=== PATIENT | male | born 1960 | race Caucasian/White ===

== ENCOUNTER 2016-08-28 08:40 | Emergency (ER) | payer OTHER ==
--- NOTE | 2016-08-28 10:19 | DIAGNOSTIC IMAGING REPORT ---
PROCEDURE: XR RIBS UNILAT W/PA CHEST-LT INDICATION: Fall down stairs 1 week ago, left chest pain. TECHNIQUE: Two views of the left ribs with single PA view chest. COMPARISON: None. FINDINGS: LEFT RIBS: Mildly displaced left eighth rib fracture. No other displaced fractures visible. No suspicious rib lesions. CHEST: Normal cardiomediastinal contour. Mild aortic arch calcific atherosclerosis. Mild asymmetric right hemidiaphragm elevation with subsegmental atelectatic change. Clear lungs without pleural effusion, pneumothorax, or contusion. The other visible osseous structures are intact. IMPRESSION: 1. Mildly displaced left eighth rib fracture. 2. No evidence of underlying lung trauma. 3. Mild aortic arch atherosclerosis.
--- NOTE | 2016-08-28 10:26 | DIAGNOSTIC IMAGING REPORT ---
PROCEDURE: XR KNEE 4 VIEWS - LEFT INDICATION: TRAUMA/INJURY TECHNIQUE: Four views. COMPARISON: None. FINDINGS: Osseous structures and joint spaces are normal. IMPRESSION: 1. Normal left knee.
--- NOTE | 2016-08-28 10:49 | ED NURSING NOTES ---
Clinical Report - Nurses [place] [address] [place] [address] 08/28/2016 8:42 [id number] Triage time 08:53. Acuity: LEVEL 4. Chief Complaint: FALL DOWN 4 STAIRS while walking, onto a tile surface and landed on their head, back and knees; tripped (and left ribs). Alert. SEPSIS SCREEN: Sepsis Screen. Negative (no infection suspected/documented). TIFFANY COMA SCORE: [place] Coma Scale: 15- eyes open spontaneously (4); best verbal response- oriented x 4 (5); best motor response- obeys commands (6). --09:02 Rosa Maria Boswell R.N. 08:52 08/28/16. BP: 110/71. HR: 98. RR: 18. O2 saturation: 95% on room air. Temp: 98.3 F. --09:02 Rosa Maria Boswell R.N. Weight: 82.5 kg stated. Height/Length: 72 inches Per Patient. BMI: 24.7. --08:54 Rosa Maria Boswell R.N. Medications Furosemide Oral 20 mg, daily. --08:56 Rosa Maria Boswell R.N. Spironolactone Oral 50 mg, daily. --08:57 Rosa Maria Boswell R.N. Allergies Codeine. Penicillins. --08:56 Rosa Maria Boswell R.N. History Arrived by private vehicle. Historian: patient. Accompanied by family. Primary physician (none, [facility]). Location of injuries: left upper back and left knee. This occurred (7 days ago). [facility] at [facility] PAST MEDICAL HX: Immunizations: up-to-date. SOCIAL HX: Never smoker. Alcohol use. Patient is a recovering alcoholic. No drug use. FUNCTIONAL ASSESSMENT: Functional assessment: no impairments noted. LEARNING NEEDS ASSESSMENT: The learning needs assessment revealed no barriers. --09:02 Rosa Maria Boswell R.N. PROBLEMS: Ascites. --09:02 Rosa Maria Boswell R.N. Umbilical Hernia. --09:02 Rosa Maria Boswell R.N. ADDITIONAL SURGERIES: Hernia Repair. --09: Rosa Maria Boswell R.N. Tonsillectomy. --09:02 Rosa Maria Boswell R.N. Interventions ID band on patient. To room. --09: Rosa Maria Boswell R.N. PHYSICAL ASSESSMENT 09:08/28/16. Patient gowned. GENERAL / NEURO / PSYCH: Alert. Oriented X 4. --09:03 Rosa Maria Boswell R.N. NURSING PROGRESS NOTES 09:08/28/16. Patient identifiers checked. Call light placed in reach. Bed placed in lowest position. Patient ready for evaluation- chart flagged. --09:03 Rosa Maria Boswell R.N. DISPOSITION / DISCHARGE Condition at departure: unchanged. No learning barriers present. Discharge instructions provided and reviewed with the patient and family. Reviewed medication(s) information. Prescription(s) given to the patient. Reviewed referrals ([facility] located next door). Verbalized understanding. Written instructions provided. The patient was discharged home and accompanied by family. He left the Emergency Department ambulatory and via private vehicle. Family member driving. --11:07 Rosa Maria Boswell R.N. 11:03 08/28/16. BP: 122/81. HR: 101. RR: 18. O2 saturation: 96%. Temp: 98 F. --11:07 Rosa Maria Boswell R.N. 11:03 08/28/16. Pain level now: 11/26. --11:51 Rosa Maria Boswell R.N. Locked/Released at 08/28/2016 11:51 by Rosa Maria Boswell R.N.
--- NOTE | 2016-08-28 10:49 | ED ORDER SUMMARY ---
..... Patient: YOANDY MALDONADO OrderSheet [facility] VisitID: [id number] [address] [place] [address] 56y, M Registration Date/Time: 08/28/2016 ORDER SHEET Weight: 82.5 kg (stated) Allergies: Codeine, Penicillins GENERAL ORDERS: Knee 4V Left Urgent (09:08/28/2016 Kaylen Nails) (Ack 9:31 TBergley) (9:52 TBergley) Ribs Unilat w PA Chest Left Urgent (09:08/28/2016 Kaylen Nails) (Ack 9:31 TBergley) (9:52 TBergley) MEDICATION ORDERS: IV FLUIDS: ORDER SHEET NOTES: [Electronically signed by Raleigh Webber Dr. (10:52 08/28/2016)] [Electronically signed by Rosa Maria Boswell R.N. (11:51 08/28/2016)] [Electronically locked/signed by Rosa Maria Boswell R.N. (11:51 08/28/2016)]
--- NOTE | 2016-08-28 10:49 | ED NURSING NOTES ---
Clinical Report - Nurses [address] [place] [place] [address] 08/28/2016 8:42 [id number] Triage time 08:53. Acuity: LEVEL 4. Chief Complaint: FALL DOWN 4 STAIRS while walking, onto a tile surface and landed on their head, back and knees; tripped (and left ribs). Alert. SEPSIS SCREEN: Sepsis Screen. Negative (no infection suspected/documented). TIFFANY COMA SCORE: [place] Coma Scale: 15- eyes open spontaneously (4); best verbal response- oriented x 4 (5); best motor response- obeys commands (6). --09:02 Rosa Maria Boswell R.N. 08:52 08/28/16. BP: 110/71. HR: 98. RR: 18. O2 saturation: 95% on room air. Temp: 98.3 F. --09:02 Rosa Maria Boswell R.N. Weight: 82.5 kg stated. Height/Length: 72 inches Per Patient. BMI: 24.7. --08:54 Rosa Maria Boswell R.N. Medications Furosemide Oral 20 mg, daily. --08:56 Rosa Maria Boswell R.N. Spironolactone Oral 50 mg, daily. --08:57 Rosa Maria Boswell R.N. Allergies Codeine. Penicillins. --08:56 Rosa Maria Boswell R.N. History Arrived by private vehicle. Historian: patient. Accompanied by family. Primary physician (none, [facility]). Location of injuries: left upper back and left knee. This occurred (7 days ago). Occurred at [facility]. PAST MEDICAL HX: Immunizations: up-to-date. SOCIAL HX: Never smoker. Alcohol use. Patient is a recovering alcoholic. No drug use. FUNCTIONAL ASSESSMENT: Functional assessment: no impairments noted. LEARNING NEEDS ASSESSMENT: The learning needs assessment revealed no barriers. --09:02 Rosa Maria Boswell R.N. PROBLEMS: Ascites. --09:02 Rosa Maria Boswell R.N. Umbilical Hernia. --09:02 Rosa Maria Boswell R.N. ADDITIONAL SURGERIES: Hernia Repair. --09: Rosa Maria Boswell R.N. Tonsillectomy. --09:02 Rosa Maria Boswell R.N. Interventions ID band on patient. To room. --09: Rosa Maria Boswell R.N. PHYSICAL ASSESSMENT 09:08/28/16. Patient gowned. GENERAL / NEURO / PSYCH: Alert. Oriented X 4. --09:03 Rosa Maria Boswell R.N. NURSING PROGRESS NOTES 09:08/28/16. Patient identifiers checked. Call light placed in reach. Bed placed in lowest position. Patient ready for evaluation- chart flagged. --09:03 Rosa Maria Boswell R.N. DISPOSITION / DISCHARGE Condition at departure: unchanged. No learning barriers present. Discharge instructions provided and reviewed with the patient and family. Reviewed medication(s) information. Prescription(s) given to the patient. Reviewed referrals ([facility] located next door). Verbalized understanding. Written instructions provided. The patient was discharged home and accompanied by family. He left the Emergency Department ambulatory and via private vehicle. Family member driving. --11:07 Rosa Maria Boswell R.N. 11:03 08/28/16. BP: 122/81. HR: 101. RR: 18. O2 saturation: 96%. Temp: 98 F. --11:07 Rosa Maria Boswell R.N. 11:03 08/28/16. Pain level now: 11/26. --11:51 Rosa Maria Boswell R.N. Locked/Released at 08/28/2016 11:51 by Rosa Maria Boswell R.N.
--- NOTE | 2016-08-28 10:49 | ED CLINICAL REPORT ---
Clinical Report - Physicians/Mid Levels [facility] [address] [place] [address] 08/28/2016 8:42 Patient: YOANDY MALDONADO Time Seen: 09:03; initial patient contact. Arrived- By private vehicle. Historian- patient. HISTORY OF PRESENT ILLNESS Location of injuries- chest and left knee. Chief Complaint: FALL and INJURY TO CHEST and LEFT LOWER EXTREMITY (KNEE). Fell down 5 stairs while walking and landed on a carpeted surface; tripped. The patient complains of moderate pain. No blow to the head, neck pain or loss of consciousness. Not dazed. REVIEW OF SYSTEMS The patient complains of pain on weight bearing. No numbness, difficulty breathing or abdominal pain. He has had chest pain. All systems otherwise negative, except as recorded above. PAST HISTORY Ascites. Umbilical Hernia. SURGERIES: Hernia Repair. Tonsillectomy. Medications: Spironolactone Oral 50 mg, daily. Furosemide Oral 20 mg, daily. Allergies: Codeine. Penicillins. SOCIAL HISTORY Never smoker. Alcohol use. Patient is a recovering alcoholic. ADDITIONAL NOTES The nursing notes have been reviewed with agreement regarding the chief complaint, PMH and patient medications and allergies. PHYSICAL EXAM Vital Signs: 08/28/2016 08:52 BP: 110/71. HR: 98. RR: 18. O2 saturation: 95%. Temp: 98.3 F. Have been reviewed as normal. Appearance: Alert. Oriented X3. No acute distress. Head: Head non-tender. No swelling of head. Eyes: Pupils equal, round and reactive to light. EOM intact. ENT: No dental injury. Pharynx normal. Neck: Painless ROM. Non-tender. CVS: Heart sounds normal. Pulses normal. Respiratory: No respiratory distress. Chest wall injury: moderate tenderness located in the left and lateral chest. No splinting present. No paradoxical movement. Breath sounds normal. Abdomen: No visible injury. Soft and nontender. Bowel sounds normal. No organomegaly. No mass. Back: No tenderness. ROM normal. Skin: Skin intact. Skin warm and dry. Normal skin color. Extremities: Left knee: mild tenderness and swelling located in the patella. Neurovascular intact distally. No ligamentous laxity present. No joint effusion. No erythema, abrasion, ecchymosis or deformity. No limitation in ROM. Neuro: Oriented X 3. No motor deficit. LABS, X-RAYS, AND EKG Sternum / Ribs X-rays: On the left, 8th rib fracture(s) present laterally. Normal lung markings present. Soft tissues normal. No pneumothorax. Views: left ribs. AP of chest. Technique: good. The X-rays were independently viewed by me and interpreted contemporaneously by me. Prior films were not available for comparison. Interpretation time: 10:20. Lt Knee X-ray: No fracture. Normal alignment. No bony lesion, air in the soft tissue or foreign body. Soft tissues normal. Joint spaces normal. Views: AP, lateral and oblique. Technique: good. The X-rays were independently viewed by me and interpreted contemporaneously by me. Prior films were not available for comparison. Interpretation time: 10:20. PROGRESS AND PROCEDURES Disposition: Discharged home in good condition. Condition: good. CLINICAL IMPRESSION Single left rib fracture. Single contusion to the left knee. INSTRUCTIONS Your Current Medications: CONTINUE TAKING THE FOLLOWING MEDICATIONS: Furosemide Oral : 20 mg daily. Spironolactone Oral : 50 mg daily. Prescription Medications: Hydrocodone/APAP 5mg / 325mg: take 1 orally every 6 hours as needed for pain. Dispense thirty (30). No refill. Diclofenac 50 mg tablets: take 1 tablet orally every 8 hours as needed for pain or stiffness. Dispense thirty (30). No refill. Follow-up: Screening today revealed the patient's blood pressure to be in the normal range. Follow-up with: [facility], , , [address], , [place], [id number] Follow up in about four days. Call for an appointment. (Electronically signed by Raleigh Webber Dr. 08/28/2016 10:52)
--- NOTE | 2016-08-28 10:49 | ED CLINICAL REPORT ---
Clinical Report - Physicians/Mid Levels [facility] [address] [place] [address] 08/28/2016 8:42 Patient: YOANDY MALDONADO Time Seen: 09:03; initial patient contact. Arrived- By private vehicle. Historian- patient. HISTORY OF PRESENT ILLNESS Location of injuries- chest and left knee. Chief Complaint: FALL and INJURY TO CHEST and LEFT LOWER EXTREMITY (KNEE). Fell down 5 stairs while walking and landed on a carpeted surface; tripped. The patient complains of moderate pain. No blow to the head, neck pain or loss of consciousness. Not dazed. REVIEW OF SYSTEMS The patient complains of pain on weight bearing. No numbness, difficulty breathing or abdominal pain. He has had chest pain. All systems otherwise negative, except as recorded above. PAST HISTORY Ascites. Umbilical Hernia. SURGERIES: Hernia Repair. Tonsillectomy. Medications: Spironolactone Oral 50 mg, daily. Furosemide Oral 20 mg, daily. Allergies: Codeine. Penicillins. SOCIAL HISTORY Never smoker. Alcohol use. Patient is a recovering alcoholic. ADDITIONAL NOTES The nursing notes have been reviewed with agreement regarding the chief complaint, PMH and patient medications and allergies. PHYSICAL EXAM Vital Signs: 08/28/2016 08:52 BP: 110/71. HR: 98. RR: 18. O2 saturation: 95%. Temp: 98.3 F. Have been reviewed as normal. Appearance: Alert. Oriented X3. No acute distress. Head: Head non-tender. No swelling of head. Eyes: Pupils equal, round and reactive to light. EOM intact. ENT: No dental injury. Pharynx normal. Neck: Painless ROM. Non-tender. CVS: Heart sounds normal. Pulses normal. Respiratory: No respiratory distress. Chest wall injury: moderate tenderness located in the left and lateral chest. No splinting present. No paradoxical movement. Breath sounds normal. Abdomen: No visible injury. Soft and nontender. Bowel sounds normal. No organomegaly. No mass. Back: No tenderness. ROM normal. Skin: Skin intact. Skin warm and dry. Normal skin color. Extremities: Left knee: mild tenderness and swelling located in the patella. Neurovascular intact distally. No ligamentous laxity present. No joint effusion. No erythema, abrasion, ecchymosis or deformity. No limitation in ROM. Neuro: Oriented X 3. No motor deficit. LABS, X-RAYS, AND EKG Sternum / Ribs X-rays: On the left, 8th rib fracture(s) present laterally. Normal lung markings present. Soft tissues normal. No pneumothorax. Views: left ribs. AP of chest. Technique: good. The X-rays were independently viewed by me and interpreted contemporaneously by me. Prior films were not available for comparison. Interpretation time: 10:20. Lt Knee X-ray: No fracture. Normal alignment. No bony lesion, air in the soft tissue or foreign body. Soft tissues normal. Joint spaces normal. Views: AP, lateral and oblique. Technique: good. The X-rays were independently viewed by me and interpreted contemporaneously by me. Prior films were not available for comparison. Interpretation time: 10:20. PROGRESS AND PROCEDURES Disposition: Discharged home in good condition. Condition: good. CLINICAL IMPRESSION Single left rib fracture. Single contusion to the left knee. INSTRUCTIONS Your Current Medications: CONTINUE TAKING THE FOLLOWING MEDICATIONS: Furosemide Oral : 20 mg daily. Spironolactone Oral : 50 mg daily. Prescription Medications: Hydrocodone/APAP 5mg / 325mg: take 1 orally every 6 hours as needed for pain. Dispense thirty (30). No refill. Diclofenac 50 mg tablets: take 1 tablet orally every 8 hours as needed for pain or stiffness. Dispense thirty (30). No refill. Follow-up: Screening today revealed the patient's blood pressure to be in the normal range. Follow-up with: [facility], , , [address], , [place], [id number] Follow up in about four days. Call for an appointment. (Electronically signed by Raleigh Webber Dr. 08/28/2016 10:52)
--- NOTE | 2016-08-28 10:49 | ED ORDER SUMMARY ---
..... Patient: YOANDY MALDONADO OrderSheet [facility] VisitID: [id number] [address] [place] [address] 56y, M Registration Date/Time: 08/28/2016 ORDER SHEET Weight: 82.5 kg (stated) Allergies: Codeine, Penicillins GENERAL ORDERS: Knee 4V Left Urgent (09:08/28/2016 Kaylen Nails) (Ack 9:31 TBergley) (9:52 TBergley) Ribs Unilat w PA Chest Left Urgent (09:08/28/2016 Kaylen Nails) (Ack 9:31 TBergley) (9:52 TBergley) MEDICATION ORDERS: IV FLUIDS: ORDER SHEET NOTES: [Electronically signed by Raleigh Webber Dr. (10:52 08/28/2016)] [Electronically signed by Rosa Maria Boswell R.N. (11:51 08/28/2016)] [Electronically locked/signed by Rosa Maria Boswell R.N. (11:51 08/28/2016)]
--- NOTE | 2016-08-28 11:52 | ED MAR SUMMARY ---
..... Medication Administration Record [facility] [address] [place], [place] [id number] Patient: YOANDY MALDONADO Visit ID: [id number] 56y, M Weight: 82.5 kg Height/Length: 72 in BMI: 24.7 ALLERGIES: Penicillins, Codeine
--- NOTE | 2016-08-28 11:52 | ED MED RECONCILIATION SUMMARY ---
Patient: YOANDY MALDONADO Medication Reconciliation Report VisitID: [id number] [address] [place] [address] 56y, M Registration Date/Time: 08/28/2016 Weight: 82.5 kg Height/Length: 72 in. BMI: 24.7 ALLERGIES: Codeine, Penicillins The patient's Home Medications are listed below: CONTINUE TAKING THE FOLLOWING MEDICATIONS: Furosemide Oral 20 mg, daily Spironolactone Oral 50 mg, daily The source(s) of the original Home Medication information: Not obtained. The following Medications were given to the patient in the Emergency Department: None. The following Medications were prescribed to the patient: Hydrocodone/APAP 5mg / 325mg: take 1 orally every 6 hours as needed for pain. Dispense thirty (30). No refill. -- Raleigh Webber Dr. Diclofenac 50 mg tablets: take 1 tablet orally every 8 hours as needed for pain or stiffness. Dispense thirty (30). No refill. -- Raleigh Webber Dr.
--- NOTE | 2016-08-28 11:52 | ED DISCHARGE INSTRUCTIONS ---
Patient: YOANDY MALDONADO General Instructions [facility] VisitID: [id number] [address], [place] [address] 56y, M Registration Date/Time: 08/28/2016 Single left rib fracture. Single contusion to the left knee. INSTRUCTIONS Your Current Medications: CONTINUE TAKING THE FOLLOWING MEDICATIONS: Furosemide Oral : 20 mg daily. Spironolactone Oral : 50 mg daily. Prescription Medications: Hydrocodone/APAP 5mg / 325mg: take 1 orally every 6 hours as needed for pain. Dispense thirty (30). No refill. Diclofenac 50 mg tablets: take 1 tablet orally every 8 hours as needed for pain or stiffness. Dispense thirty (30). No refill. Follow-up: Screening today revealed the patient's blood pressure to be in the normal range. Follow-up with: [facility], , , [address], , [place], [address] Follow up in about four days. Call for an appointment. ADDITIONAL INFORMATION Contusion,Soft Tissue You have a CONTUSION, which is a bruise with swelling and some bleeding under the skin. There are no broken bones. This injury takes a few days to a few weeks to heal. Home Care: 1) Keep the injured part elevated to reduce pain and swelling. This is especially important during the first 48 hours. 2) Make an ice pack (ice cubes in a plastic bag, wrapped in a towel) and apply for 20 minutes every 1-2 hours the first day. Continue this 3-4 times a day until the pain and swelling goes away. 3) You may use acetaminophen (Tylenol) or ibuprofen (Motrin, Advil) to control pain, unless another pain medicine was prescribed. [ NOTE : If you have chronic liver or kidney disease or ever had a stomach ulcer or GI bleeding, talk with your doctor before using these medicines.] Follow Up with your doctor or this facility if you are not improving within the next THREE days. [NOTE: If X-rays were taken, they will be reviewed by a radiologist. You will be notified of any new findings that may affect your care.] Get Prompt Medical Attention if any of the following occur: -- Pain or swelling increases -- Injured arm or leg becomes cold, blue, numb or tingly -- Redness, warmth or drainage from the skin Rib Fracture You have a fracture (break) of one or more ribs. Rib fractures do not require a cast like other bones. They will heal by themselves in about 4-6 weeks. The first 3-4 weeks will be the most painful because deep breathing, coughing or changing position from sitting to lying down, may cause the broken ends to move slightly. Home Care: Rest. You should not be doing any heavy lifting or strenuous exertion until the pain goes away. Because it hurts to breathe when you have a broken rib, there is risk of getting pneumonia from poor airflow through your lungs. To prevent this: Take four very deep breaths at least four times a day (exhale through pursed lips as if you are blowing up a balloon). If an "incentive spirometer" (breathing exercise device) was given to you, use it at least four times a day, or as directed. Apply an ice pack (ice cubes in a plastic bag, wrapped in a towel) over the injured area for 20 minutes every 1-2 hours the first day. Continue with ice packs 3-4 times a day for the next two days, then as needed for the relief of pain and swelling. You may use acetaminophen (Tylenol) or ibuprofen (Motrin, Advil) to control pain, unless another pain medicine was prescribed. [NOTE: If you have chronic liver or kidney disease or ever had a stomach ulcer or GI bleeding, talk with your doctor before using these medicines.] If your pain is not controlled by the treatment given, contact your doctor. Sometimes a stronger pain medicine may be needed. A nerve block (numbing the nerve between the ribs) can be performed in case of severe pain. Follow Up with your doctor during the next week, or as advised. Rarely, a broken rib will cause complications within the first few days that may not be evident during your initial exam (such as, collapsed lung, bleeding around the lung or into the abdomen, or pneumonia). Therefore, watch for the signs below. [NOTE: If x-rays were taken, they will be reviewed by a radiologist. You will be notified of any new findings that may affect your care.] Get Prompt Medical Attention if any of the following occur: Shortness of breath Increasing chest pain with breathing Dizziness, weakness or fainting New or worsening abdominal pain Fever of 100.4F (38C) or higher, or as directed by your healthcare provider Congested cough Hydrocodone Bitartrate, Acetaminophen Oral tablet What is this medicine? ACETAMINOPHEN; HYDROCODONE (a set a ANA harvey fen; yvan droe KOE done) is a pain reliever. It is used to treat mild to moderate pain. How should I use this medicine? Take this medicine by mouth. Swallow it with a full glass of water. Follow the directions on the prescription label. If the medicine upsets your stomach, take the medicine with food or milk. Do not take more than you are told to take. Talk to your automotive services manager regarding the use of this medicine in children. This medicine is not approved for use in children. What side effects may I notice from receiving this medicine? Side effects that you should report to your doctor or health acute care certified nursing assistant as soon as possible: allergic reactions like skin rash, itching or hives, swelling of the face, lips, or tongue breathing problems confusion feeling faint or lightheaded, falls stomach pain yellowing of the eyes or skin Side effects that usually do not require medical attention (report to your doctor or health acute care certified nursing assistant if they continue or are bothersome): nausea, vomiting stomach upset What may interact with this medicine? alcohol antihistamines isoniazid medicines for depression, anxiety, or psychotic disturbances medicines for sleep muscle relaxants naltrexone narcotic medicines (opiates) for pain phenobarbital ritonavir tramadol What if I miss a dose? If you miss a dose, take it as soon as you can. If it is almost time for your next dose, take only that dose. Do not take double or extra doses. Where should I keep my medicine? Keep out of the reach of children. This medicine can be abused. Keep your medicine in a safe place to protect it from theft. Do not share this medicine with anyone. Selling or giving away this medicine is dangerous and against the law. Store at room temperature between 15 and 30 degrees C (59 and 86 degrees F). Protect from light. Keep container tightly closed. Throw away any unused medicine after the expiration date. Discard unused medicine and used packaging carefully. Pets and children can be harmed if they find used or lost packages. What should I tell my health care provider before I take this medicine? They need to know if you have any of these conditions: brain tumor Crohn's disease, inflammatory bowel disease, or ulcerative colitis drink more than 3 alcohol-containing drinks per day drug abuse or addiction head injury heart or circulation problems kidney disease or problems going to the bathroom liver disease lung disease, asthma, or breathing problems an unusual or allergic reaction to acetaminophen, hydrocodone, other opioid analgesics, other medicines, foods, dyes, or preservatives or trying to get breast-feeding What should I watch for while using this medicine? Tell your doctor or health acute care certified nursing assistant if your pain does not go away, if it gets worse, or if you have new or a different type of pain. You may develop tolerance to the medicine. Tolerance means that you will need a higher dose of the medicine for pain relief. Tolerance is normal and is expected if you take the medicine for a long time. Do not suddenly stop taking your medicine because you may develop a severe reaction. Your body becomes used to the medicine. This does NOT mean you are addicted. Addiction is a behavior related to getting and using a drug for a non-medical reason. If you have pain, you have a medical reason to take pain medicine. Your doctor will tell you how much medicine to take. If your doctor wants you to stop the medicine, the dose will be slowly lowered over time to avoid any side effects. You may get drowsy or dizzy when you first start taking the medicine or change doses. Do not drive, use machinery, or do anything that may be dangerous until you know how the medicine affects you. Stand or sit up slowly. There are different types of narcotic medicines (opiates) for pain. If you take more than one type at the same time, you may have more side effects. Give your health care provider a list of all medicines you use. Your doctor will tell you how much medicine to take. Do not take more medicine than directed. Call emergency for help if you have problems breathing. The medicine will cause constipation. Try to have a bowel movement at least every 2 to 3 days. If you do not have a bowel movement for 3 days, call your doctor or health acute care certified nursing assistant. Too much acetaminophen can be very dangerous. Do not take Tylenol (acetaminophen) or medicines that contain acetaminophen with this medicine. Many non-prescription medicines contain acetaminophen. Always read the labels carefully. You have been given the following additional information: Contusion, Soft Tissue Fracture, Rib Hydrocodone Bitartrate, Acetaminophen Oral tablet (Electronically signed by Raleigh Webber Dr. 08/28/2016 10:52)
--- NOTE | 2016-08-28 11:52 | ED MAR SUMMARY ---
..... Medication Administration Record [facility] [address], [place] [id number] Patient: YOANDY MALDONADO Visit ID: [id number] 56y, M Weight: 82.5 kg Height/Length: 72 in BMI: 24.7 ALLERGIES: Penicillins, Codeine
--- NOTE | 2016-08-28 11:52 | ED DISCHARGE INSTRUCTIONS ---
Patient: YOANDY MALDONADO General Instructions [facility] VisitID: [id number] [address], [place] [address] 56y, M Registration Date/Time: 08/28/2016 Single left rib fracture. Single contusion to the left knee. INSTRUCTIONS Your Current Medications: CONTINUE TAKING THE FOLLOWING MEDICATIONS: Furosemide Oral : 20 mg daily. Spironolactone Oral : 50 mg daily. Prescription Medications: Hydrocodone/APAP 5mg / 325mg: take 1 orally every 6 hours as needed for pain. Dispense thirty (30). No refill. Diclofenac 50 mg tablets: take 1 tablet orally every 8 hours as needed for pain or stiffness. Dispense thirty (30). No refill. Follow-up: Screening today revealed the patient's blood pressure to be in the normal range. Follow-up with: [facility], , , [address], , [place], [address] Follow up in about four days. Call for an appointment. ADDITIONAL INFORMATION Contusion,Soft Tissue You have a CONTUSION, which is a bruise with swelling and some bleeding under the skin. There are no broken bones. This injury takes a few days to a few weeks to heal. Home Care: 1) Keep the injured part elevated to reduce pain and swelling. This is especially important during the first 48 hours. 2) Make an ice pack (ice cubes in a plastic bag, wrapped in a towel) and apply for 20 minutes every 1-2 hours the first day. Continue this 3-4 times a day until the pain and swelling goes away. 3) You may use acetaminophen (Tylenol) or ibuprofen (Motrin, Advil) to control pain, unless another pain medicine was prescribed. [ NOTE : If you have chronic liver or kidney disease or ever had a stomach ulcer or GI bleeding, talk with your doctor before using these medicines.] Follow Up with your doctor or this facility if you are not improving within the next THREE days. [NOTE: If X-rays were taken, they will be reviewed by a radiologist. You will be notified of any new findings that may affect your care.] Get Prompt Medical Attention if any of the following occur: -- Pain or swelling increases -- Injured arm or leg becomes cold, blue, numb or tingly -- Redness, warmth or drainage from the skin Rib Fracture You have a fracture (break) of one or more ribs. Rib fractures do not require a cast like other bones. They will heal by themselves in about 4-6 weeks. The first 3-4 weeks will be the most painful because deep breathing, coughing or changing position from sitting to lying down, may cause the broken ends to move slightly. Home Care: Rest. You should not be doing any heavy lifting or strenuous exertion until the pain goes away. Because it hurts to breathe when you have a broken rib, there is risk of getting pneumonia from poor airflow through your lungs. To prevent this: Take four very deep breaths at least four times a day (exhale through pursed lips as if you are blowing up a balloon). If an "incentive spirometer" (breathing exercise device) was given to you, use it at least four times a day, or as directed. Apply an ice pack (ice cubes in a plastic bag, wrapped in a towel) over the injured area for 20 minutes every 1-2 hours the first day. Continue with ice packs 3-4 times a day for the next two days, then as needed for the relief of pain and swelling. You may use acetaminophen (Tylenol) or ibuprofen (Motrin, Advil) to control pain, unless another pain medicine was prescribed. [NOTE: If you have chronic liver or kidney disease or ever had a stomach ulcer or GI bleeding, talk with your doctor before using these medicines.] If your pain is not controlled by the treatment given, contact your doctor. Sometimes a stronger pain medicine may be needed. A nerve block (numbing the nerve between the ribs) can be performed in case of severe pain. Follow Up with your doctor during the next week, or as advised. Rarely, a broken rib will cause complications within the first few days that may not be evident during your initial exam (such as, collapsed lung, bleeding around the lung or into the abdomen, or pneumonia). Therefore, watch for the signs below. [NOTE: If x-rays were taken, they will be reviewed by a radiologist. You will be notified of any new findings that may affect your care.] Get Prompt Medical Attention if any of the following occur: Shortness of breath Increasing chest pain with breathing Dizziness, weakness or fainting New or worsening abdominal pain Fever of 100.4F (38C) or higher, or as directed by your healthcare provider Congested cough Hydrocodone Bitartrate, Acetaminophen Oral tablet What is this medicine? ACETAMINOPHEN; HYDROCODONE (a set a ANA harvey fen; yvan droe KOE done) is a pain reliever. It is used to treat mild to moderate pain. How should I use this medicine? Take this medicine by mouth. Swallow it with a full glass of water. Follow the directions on the prescription label. If the medicine upsets your stomach, take the medicine with food or milk. Do not take more than you are told to take. Talk to your leach tank tender regarding the use of this medicine in children. This medicine is not approved for use in children. What side effects may I notice from receiving this medicine? Side effects that you should report to your doctor or health direct care supervisor as soon as possible: allergic reactions like skin rash, itching or hives, swelling of the face, lips, or tongue breathing problems confusion feeling faint or lightheaded, falls stomach pain yellowing of the eyes or skin Side effects that usually do not require medical attention (report to your doctor or health direct care supervisor if they continue or are bothersome): nausea, vomiting stomach upset What may interact with this medicine? alcohol antihistamines isoniazid medicines for depression, anxiety, or psychotic disturbances medicines for sleep muscle relaxants naltrexone narcotic medicines (opiates) for pain phenobarbital ritonavir tramadol What if I miss a dose? If you miss a dose, take it as soon as you can. If it is almost time for your next dose, take only that dose. Do not take double or extra doses. Where should I keep my medicine? Keep out of the reach of children. This medicine can be abused. Keep your medicine in a safe place to protect it from theft. Do not share this medicine with anyone. Selling or giving away this medicine is dangerous and against the law. Store at room temperature between 15 and 30 degrees C (59 and 86 degrees F). Protect from light. Keep container tightly closed. Throw away any unused medicine after the expiration date. Discard unused medicine and used packaging carefully. Pets and children can be harmed if they find used or lost packages. What should I tell my health care provider before I take this medicine? They need to know if you have any of these conditions: brain tumor Crohn's disease, inflammatory bowel disease, or ulcerative colitis drink more than 3 alcohol-containing drinks per day drug abuse or addiction head injury heart or circulation problems kidney disease or problems going to the bathroom liver disease lung disease, asthma, or breathing problems an unusual or allergic reaction to acetaminophen, hydrocodone, other opioid analgesics, other medicines, foods, dyes, or preservatives or trying to get breast-feeding What should I watch for while using this medicine? Tell your doctor or health direct care supervisor if your pain does not go away, if it gets worse, or if you have new or a different type of pain. You may develop tolerance to the medicine. Tolerance means that you will need a higher dose of the medicine for pain relief. Tolerance is normal and is expected if you take the medicine for a long time. Do not suddenly stop taking your medicine because you may develop a severe reaction. Your body becomes used to the medicine. This does NOT mean you are addicted. Addiction is a behavior related to getting and using a drug for a non-medical reason. If you have pain, you have a medical reason to take pain medicine. Your doctor will tell you how much medicine to take. If your doctor wants you to stop the medicine, the dose will be slowly lowered over time to avoid any side effects. You may get drowsy or dizzy when you first start taking the medicine or change doses. Do not drive, use machinery, or do anything that may be dangerous until you know how the medicine affects you. Stand or sit up slowly. There are different types of narcotic medicines (opiates) for pain. If you take more than one type at the same time, you may have more side effects. Give your health care provider a list of all medicines you use. Your doctor will tell you how much medicine to take. Do not take more medicine than directed. Call emergency for help if you have problems breathing. The medicine will cause constipation. Try to have a bowel movement at least every 2 to 3 days. If you do not have a bowel movement for 3 days, call your doctor or health direct care supervisor. Too much acetaminophen can be very dangerous. Do not take Tylenol (acetaminophen) or medicines that contain acetaminophen with this medicine. Many non-prescription medicines contain acetaminophen. Always read the labels carefully. You have been given the following additional information: Contusion, Soft Tissue Fracture, Rib Hydrocodone Bitartrate, Acetaminophen Oral tablet (Electronically signed by Raleigh Webber Dr. 08/28/2016 10:52)
--- NOTE | 2016-08-28 11:52 | ED MED RECONCILIATION SUMMARY ---
Patient: YOANDY MALDONADO Medication Reconciliation Report [facility] VisitID: [id number] [address] [place] [address] 56y, M Registration Date/Time: 08/28/2016 Weight: 82.5 kg Height/Length: 72 in. BMI: 24.7 ALLERGIES: Codeine, Penicillins The patient's Home Medications are listed below: CONTINUE TAKING THE FOLLOWING MEDICATIONS: Furosemide Oral 20 mg, daily Spironolactone Oral 50 mg, daily The source(s) of the original Home Medication information: Not obtained. The following Medications were given to the patient in the Emergency Department: None. The following Medications were prescribed to the patient: Hydrocodone/APAP 5mg / 325mg: take 1 orally every 6 hours as needed for pain. Dispense thirty (30). No refill. -- Raleigh Webber Dr. Diclofenac 50 mg tablets: take 1 tablet orally every 8 hours as needed for pain or stiffness. Dispense thirty (30). No refill. -- Raleigh Webber Dr.
== END 2016-08-28 11:00 | disposition home or self-care (01) ==
LOC: ED SRH 08:40
DX: S22.32XA Fracture of one rib, left side, initial encounter for closed fracture (principal); S80.02XA Contusion of left knee, initial encounter; Y92.009 Unspecified place in unspecified non-institutional (private) residence as the place of occurrence of the external cause; Y99.9 Unspecified external cause status; Y93.9 Activity, unspecified; W10.9XXA Fall (on) (from) unspecified stairs and steps, initial encounter